=== PATIENT | female | born 1950 | race Caucasian/White ===

== ENCOUNTER 2017-04-07 16:56 | Observation (INO) | payer MEDICARE, OTHER ==
[~2017-04-07] VITALS: Ht 162.6 cm; Wt 67.6 kg
[2017-04-07] MEDS ORDERED: CEPHALEXIN500 M1 PO (17:34)
[2017-04-07] MEDS ORDERED: BACTRIM DS 8001 TAB PO (17:35)
[2017-04-07] MEDS ORDERED: PRECOSE100 M1 PO (17:36)
[2017-04-07] MEDS ORDERED: EFFEXOR-XR150 MG PO (17:37)
[2017-04-07] MEDS ORDERED: SYNTHROID0.1 MG/TAB PO (17:38)
[2017-04-07] MEDS ORDERED: GLUCOPHAGE500 MG/TAB PO ×2 (17:39→17:40)
[2017-04-07] MEDS ORDERED: MIRAPEX0.5 MG PO (17:41)
[2017-04-07] MEDS ORDERED: GLUCOTROL XL5 MG/TAB PO (17:42)
[2017-04-07] MEDS ORDERED: FOSAMAX 70MG TA70 MG PO (17:43)
[2017-04-07] MEDS ORDERED: LANTUS SOLOS100 U/ML SQ (17:43)
[2017-04-07] MEDS ORDERED: ALEVE 220MG220 MG PO (17:44)
[2017-04-07 18:25] VITALS: BP 152/76; PULSE 67; TEMP 97.8
[2017-04-07 21:08] VITALS: BP 121/51; PULSE 79; TEMP 97.6
[2017-04-08 00:24] VITALS: BP 142/65; PULSE 72; TEMP 97.5
[2017-04-08 03:47] VITALS: BP 134/65; PULSE 73; TEMP 98.2
[2017-04-08 07:06] LABS: BASO % 0.3 % (0.0-2.0); EOS # 0.2 (0.0-0.7); EOS % 3.2 % (0-4.0); GRAN # 2.5 (1.4-6.5); HEMATOCRIT 39.3 % (37.0-47.0); HEMOGLOBIN 13.3 g/dl (12.5-16.0); LYMPH # 2.6 (1.2-3.4); LYMPH % 43.1 % (20.0-51.0); MEAN CELL VOLUME 95 fl (80.0-100.0); MEAN CORPUSCULAR HEMOGLOBIN 32 pg (27.0-31.0); MEAN CORPUSCULAR HGB CONC 34 g/dl (33.0-37.0); MEAN PLATELET VOLUME 9.1 fl (7.4-10.4); MONO # 0.7 (0.1-0.6); MONO % 10.9 % (1.7-9.3); PLATELET COUNT 213 K/mm3 (130-400); RED BLOOD COUNT 4.12 M/mm3 (4.10-5.30); REDCELL DISTRIBUTION WIDTH-CV 12.1 % (11.5-14.5)
[2017-04-08 07:27] LABS: C-REACTIVE PROTEIN 0.8 mg/dL (0.0-0.9); CALCIUM 8.8 mg/dL (8.4-10.2); CREATININE, serum 0.64 mg/dL (0.52-1.25); POTASSIUM 3.6 mmol/L (3.4-5.0)
[2017-04-08 07:40] LABS: ERYTHROCYTE SEDIMENTATION RATE 13 mm/hr (0-30)
[2017-04-08 09:12] VITALS: BP 130/69; PULSE 71
[2017-04-08 12:55] VITALS: BP 147/75; PULSE 70; TEMP 98.3
[2017-04-08 15:44] VITALS: BP 146/73; PULSE 77; TEMP 97.8
[2017-04-08 20:27] VITALS: BP 144/86; PULSE 94; TEMP 98.1
[2017-04-09 00:56] VITALS: BP 127/63; PULSE 76; TEMP 97.8
[2017-04-09 05:57] VITALS: BP 137/65; PULSE 71; TEMP 97.4
[2017-04-09 06:47] LABS: BASO % 0.5 % (0.0-2.0); EOS # 0.2 (0.0-0.7); EOS % 2.3 % (0-4.0); GRAN # 4.4 (1.4-6.5); GRAN % 56.3 % (42.2-75.2); HEMOGLOBIN 12.5 g/dl (12.5-16.0); LYMPH # 2.4 (1.2-3.4); LYMPH % 30.4 % (20.0-51.0); MEAN CELL VOLUME 95 fl (80.0-100.0); MEAN CORPUSCULAR HEMOGLOBIN 32 pg (27.0-31.0); MEAN CORPUSCULAR HGB CONC 34 g/dl (33.0-37.0); MEAN PLATELET VOLUME 9.3 fl (7.4-10.4); MONO # 0.8 (0.1-0.6); MONO % 9.7 % (1.7-9.3); PLATELET COUNT 209 K/mm3 (130-400)
[2017-04-09 06:52] LABS: HEMATOCRIT 36.9 % (37.0-47.0)
[2017-04-09 06:59] LABS: CALCIUM 8.4 mg/dL (8.4-10.2); CREATININE, serum 0.6 mg/dL (0.52-1.25); POTASSIUM 3.4 mmol/L (3.4-5.0)
[2017-04-09 07:56] VITALS: BP 148/85; PULSE 80; TEMP 97.2
[2017-04-09 11:22] VITALS: BP 152/85; PULSE 79; TEMP 97.2
[2017-04-09] MEDS ORDERED: CEFEPIME2 GM/100 M IV (12:02)
[2017-04-09] MEDS ORDERED: VANCOCIN HCL1 GM IV (12:04)
== END 2017-04-09 14:45 | disposition home or self-care (01) ==
LOC: PEDS 16:56 → MEDICAL 17:14
PROVIDERS: Family Medicine; Physician Assistant
DX: E11.69 Type 2 diabetes mellitus with other specified complication (principal); M86.8X7 Other osteomyelitis, ankle and foot; E03.9 Hypothyroidism, unspecified; I10 Essential (primary) hypertension; J32.9 Chronic sinusitis, unspecified; Z96.653 Presence of artificial knee joint, bilateral; Z79.4 Long term (current) use of insulin; Z88.6 Allergy status to analgesic agent; Z90.710 Acquired absence of both cervix and uterus; Z83.3 Family history of diabetes mellitus; Z80.0 Family history of malignant neoplasm of digestive organs; Z80.42 Family history of malignant neoplasm of prostate; Z82.49 Family history of ischemic heart disease and other diseases of the circulatory system
CPT/HCPCS: C1751; G0378; G0379; J0692; J1644; J1815; J2543; J3370; J7050

== ENCOUNTER → 2017-04-07 | Outpatient (CLI) | payer MEDICARE, OTHER ==
[~2017-04-07] MED LIST: ALEVE 220MG220 MG PO; BACTRIM DS 8001 TAB PO; CEFEPIME2 GM/100 M IV; CEPHALEXIN500 M1 PO; EFFEXOR-XR150 MG PO; FOSAMAX 70MG TA70 MG PO; GLUCOPHAGE500 MG/TAB PO; GLUCOTROL XL5 MG/TAB PO; LANTUS SOLOS100 U/ML SQ; MIRAPEX0.5 MG PO; PRECOSE100 M1 PO; SYNTHROID0.1 MG/TAB PO; VANCOCIN HCL1 GM IV
== END ==
LOC: COL.RAD 13:50
DX: Z01.812 Encounter for preprocedural laboratory examination (principal); R60.0 Localized edema; M89.8X7 Other specified disorders of bone, ankle and foot; E11.9 Type 2 diabetes mellitus without complications

== ENCOUNTER → 2017-05-19 | Outpatient (CLI) | payer MEDICARE, OTHER | LOC: COL.RAD 13:15 | DX: L03.115 Cellulitis of right lower limb (principal); M60.9 Myositis, unspecified; R93.6 Abnormal findings on diagnostic imaging of limbs; Z88.5 Allergy status to narcotic agent | CPT/HCPCS: A9585 ==

== ENCOUNTER → 2017-06-01 | Outpatient (CLI) | payer MEDICARE, OTHER | LOC: COL.RAD 07:06 | DX: M84.474D Pathological fracture, right foot, subsequent encounter for fracture with routine healing (principal) ==

== ENCOUNTER 2017-09-06 17:53 | Emergency (ER) | payer MEDICARE, OTHER ==
[~2017-09-06] VITALS: Ht 162.6 cm; Wt 68.2 kg
[2017-09-06 18:01] VITALS: TEMP 99.7
[2017-09-06 18:39] LABS: BASO # 0.1 (0.0-0.2); BASO % 0.4 % (0.0-2.0); EOS # 0.1 (0.0-0.7); EOS % 0.3 % (0-4.0); GRAN # 14.1 (1.4-6.5); GRAN % 75.2 % (42.2-75.2); HEMATOCRIT 39.8 % (37.0-47.0); HEMOGLOBIN 13.2 g/dl (12.5-16.0); LYMPH # 2.5 (1.2-3.4); LYMPH % 13.2 % (20.0-51.0); MEAN CELL VOLUME 95 fl (80.0-100.0); MEAN CORPUSCULAR HEMOGLOBIN 32 pg (27.0-31.0); MEAN CORPUSCULAR HGB CONC 33 g/dl (33.0-37.0); MEAN PLATELET VOLUME 9.1 fl (7.4-10.4); MONO # 1.9 (0.1-0.6); MONO % 10.3 % (1.7-9.3); PLATELET COUNT 294 K/mm3 (130-400); RED BLOOD COUNT 4.19 M/mm3 (4.10-5.30); REDCELL DISTRIBUTION WIDTH-CV 12.9 % (11.5-14.5)
[2017-09-06 18:55] LABS: COLLECTION METHOD CLEAN CATCH
[2017-09-06 19:22] LABS: ALANINE AMINOTRANSFERASE 25 U/L (9-52); ALKALINE PHOSPHATASE 89 U/L (50-136); ANION GAP 10 mmol/L (7-16); AST,SGOT 19 U/L (15-37); BILIRUBIN,TOTAL 0.6 mg/dL (0.0-1.0); BLOOD UREA NITROGEN 17 mg/dL (7-17); CALCIUM 9.4 mg/dL (8.4-10.2); CARBON DIOXIDE 30 mmol/L (22-30); CHLORIDE 95 mmol/L (98-107); CREATININE, serum 0.86 mg/dL (0.52-1.25); GLUCOSE 173 mg/dL (74-106); SODIUM 134 mmol/L (137-145); TOTAL PROTEIN 7.6 gm/dL (6.4-8.2)
[2017-09-06 19:25] LABS: MUCOUS Present /lpf; PH 6 (5-8); SQUAMOUS EPITHELIAL None Seen /hpf; URINE APPEARANCE Clear; URINE BACTERIA None Seen /hpf; URINE BILIRUBIN Negative (NEGATIVE); URINE BLOOD 2+ (NEGATIVE); URINE COLOR Yellow; URINE GLUCOSE Negative (NEGATIVE); URINE KETONE Trace (NEGATIVE); URINE LEUKOCYTE ESTERASE Negative (NEGATIVE); URINE NITRATE Negative (NEGATIVE); URINE PROTEIN(semi-quant) 2+ (NEGATIVE)
[2017-09-06 19:31] LABS: TROPONIN-I < 0.012 ng/mL (0.000-0.034)
[2017-09-06 19:34] LABS: C-REACTIVE PROTEIN 17.6 mg/dL (0.0-0.9)
[2017-09-06] MEDS ORDERED: LANTUS SOLOS100 U/ML (20:00)
[2017-09-06] MEDS ORDERED: GLUCOPHAGE1000 MG PO (20:02)
[2017-09-06] MEDS ORDERED: LEVAQUIN 750MG750 M1 PO (22:39)
[2017-09-06 22:41] VITALS: BP 127/70; PULSE 104
== END 2017-09-06 22:46 | disposition home or self-care (01) ==
LOC: COL.ER 17:53
PROVIDERS: Physician Assistant
DX: J18.1 Lobar pneumonia, unspecified organism (principal); E11.9 Type 2 diabetes mellitus without complications; E03.9 Hypothyroidism, unspecified; Z79.4 Long term (current) use of insulin
CPT/HCPCS: J1956; J7030; Q9967